=== PATIENT | male | born 1980 | race Asian ===

== ENCOUNTER 2020-08-25 16:53 | Inpatient (IN) | payer SELFPAY ==
[~2020-08-25] VITALS: Ht 165.1 cm; Wt 77.0 kg
[2020-08-25 19:08] LABS: Hematocrit 33.8 % (41.0-53.0); Hemoglobin 10.6 g/dL (13.5-17.5); Mean Corpuscular Hemoglobin 20.7 pg (28.0-32.0); Mean Corpuscular Hgb Conc. 31.3 g/dL (32.0-36.0); Platelet Count (auto) 249 10^3/uL (140-450); Red Blood Cells 5.12 10^6/uL (4.5-5.90); Red Cell Distribution Width 18.1 % (11.8-14.3); White Blood Cell 11.8 10^3/uL (4.4-10.8)
[2020-08-25 19:12] LABS: Band Neutrophils % (manual) 0; Basophils % (manual) 0 (0.0-2.0); Blast Cells 0; Metamyelocytes % 0; Myelocytes % 0; Promyelocytes % 0; Reactive Lymphocytes 0
[2020-08-25 19:34] LABS: Magnesium 2.1 mg/dL (1.6-2.6); Potassium 3.4 mmol/L (3.5-5.1)
[2020-08-25 19:52] LABS: Albumin 3.2 g/dL (3.4-5.0); BUN/Creatinine Ratio 15.9; Bilirubin, Total 2.5 mg/dL (0.2-1.0); Calcium 8.6 mg/dL (8.5-10.1); Total Protein 8.2 g/dL (6.4-8.2)
[2020-08-25 21:30] LABS: Eosinophils % (manual) 2 (0-7); Lymphocytes % (manual) 9 (10.0-50.0); Monocytes % (manual) 12 (0-12)
[2020-08-25] MEDS ORDERED: MORPHINE SULFATE 4 MG/ML SYR/VIAL IV ONE (22:15)
[2020-08-25] MEDS ORDERED: ONDANSETRON HCL 4 MG/2 ML VIAL IV ONE (22:30)
[2020-08-25 22:59] LABS: Urine Bacteria NONE SEEN /hpf (None Seen); Urine Blood Negative /uL (Negative); Urine Hyaline Cast FEW /lpf (0 - 2); Urine Mucus FEW (None Seen); Urine Specific Gravity 1.019 (1.001-1.035); Urine WBC 5 /hpf (0 - 3)
[2020-08-25] MEDS ORDERED: cefTRIAXone 1GM/50ML D5W 50 ML IV ONE (23:15)
[2020-08-25] MEDS ORDERED: metroNIDAZOLE 500MG/100ML 100 ML IV ONE (23:15)
[2020-08-26 01:23] LABS: INR 1.03 (0.9-1.15); Partial Thromboplastin Time 20.5 sec (23.0-31.2)
[2020-08-26] MEDS ORDERED: NITROGLYCERIN 0.4 MG SL TAB SL PRN (04:00)
[2020-08-26] MEDS ORDERED: ACETAMINOPHEN 325 MG TAB PO PRN (04:00)
[2020-08-26] MEDS ORDERED: POTASSIUM CHL 20MEQ/100ML 100 ML IV ONE (04:00)
[2020-08-26] MEDS ORDERED: ONDANSETRON HCL 4 MG/2 ML VIAL IV PRN (04:00)
[2020-08-26] MEDS ORDERED: MORPHINE SULF INJ 2 MG/ML SYRINGE 1ML IV PRN (04:00)
[2020-08-26] MEDS ORDERED: MORPHINE SULFATE 4 MG/ML SYR/VIAL IV PRN (04:00)
[2020-08-26 08:40] VITALS: BP 162/112
[2020-08-26 10:24] LABS: Potassium 3.6 mmol/L (3.5-5.1)
[2020-08-26] MEDS: SODIUM CHLORIDE 0.9% 1,000 ML IV SCH ×2 (10:32→22:42)
[2020-08-26] MEDS: cefTRIAXone 1GM/50ML D5W 50 ML IV SCH (10:32)
[2020-08-26] MEDS: PANTOPRAZOLE 40 MG/10 ML VIAL INJ IV SCH (10:32)
[2020-08-26] MEDS: ENOXAPARIN SOD 30 MG/0.3 ML SYRINGE SC SCH (10:33)
[2020-08-26 10:49] LABS: Hematocrit 34.2 % (41.0-53.0); Mean Corpuscular Hemoglobin 21.1 pg (28.0-32.0); Mean Corpuscular Hgb Conc. 32.3 g/dL (32.0-36.0); Mean Corpuscular Volume 65.6 fL (80.0-100.0); Platelet Count (auto) 251 10^3/uL (140-450); Red Blood Cells 5.22 10^6/uL (4.5-5.90); White Blood Cell 10.5 10^3/uL (4.4-10.8)
[2020-08-26 10:53] LABS: Albumin 3.3 g/dL (3.4-5.0); BUN/Creatinine Ratio 20.9; Basophils % (manual) 0 (0.0-2.0); Bilirubin, Total 4.2 mg/dL (0.2-1.0); Blast Cells 0; Calcium 9.1 mg/dL (8.5-10.1); Eosinophils % (manual) 0 (0-7); Metamyelocytes % 0; Myelocytes % 0; Promyelocytes % 0; Reactive Lymphocytes 0; Total Protein 8.4 g/dL (6.4-8.2)
[2020-08-26] MEDS ORDERED: cloNIDine HCL 0.1 MG TAB PO PRN (11:15)
[2020-08-26] MEDS ORDERED: IOHEXOL 300 MG/ML 100ML BOTTLE IJ ONE (11:59)
[2020-08-26 12:00] VITALS: BP 166/94
[2020-08-26] MEDS: metroNIDAZOLE 500MG/100ML 100 ML IV SCH ×2 (14:00→22:43)
[2020-08-26 14:43] LABS: Band Neutrophils % (manual) 2; Lymphocytes % (manual) 10 (10.0-50.0); Monocytes % (manual) 8 (0-12)
[2020-08-26 16:00] VITALS: BP 151/90
[2020-08-27] MEDS: metroNIDAZOLE 500MG/100ML 100 ML IV SCH ×3 (06:19→21:47)
[2020-08-27 07:46] LABS: Hemoglobin 10.3 g/dL (13.5-17.5)
[2020-08-27 07:48] LABS: Hematocrit 31.9 % (41.0-53.0); Mean Corpuscular Hemoglobin 21.1 pg (28.0-32.0); Mean Corpuscular Hgb Conc. 32.4 g/dL (32.0-36.0); Mean Corpuscular Volume 65.2 fL (80.0-100.0); Platelet Count (auto) 200 10^3/uL (140-450); Red Blood Cells 4.88 10^6/uL (4.5-5.90); Red Cell Distribution Width 18.1 % (11.8-14.3); White Blood Cell 9.5 10^3/uL (4.4-10.8)
[2020-08-27 07:54] LABS: Albumin 2.7 g/dL (3.4-5.0); Calcium 8.6 mg/dL (8.5-10.1); Potassium 3.6 mmol/L (3.5-5.1)
[2020-08-27 07:56] LABS: Band Neutrophils % (manual) 0; Basophils % (manual) 0 (0.0-2.0); Metamyelocytes % 0
[2020-08-27 07:57] LABS: Blast Cells 0; Myelocytes % 0; Promyelocytes % 0; Reactive Lymphocytes 0
[2020-08-27 08:07] LABS: BUN/Creatinine Ratio 15.9; Bilirubin, Total 2.7 mg/dL (0.2-1.0); Total Protein 7.6 g/dL (6.4-8.2)
[2020-08-27] MEDS: cefTRIAXone 1GM/50ML D5W 50 ML IV SCH (09:07)
[2020-08-27] MEDS: ENOXAPARIN SOD 30 MG/0.3 ML SYRINGE SC SCH (09:07)
[2020-08-27] MEDS: PANTOPRAZOLE 40 MG/10 ML VIAL INJ IV SCH (09:07)
[2020-08-27] MEDS: SODIUM CHLORIDE 0.9% 1,000 ML IV SCH (13:22)
[2020-08-27 14:19] LABS: Eosinophils % (manual) 1 (0-7)
[2020-08-27 14:20] LABS: Lymphocytes % (manual) 15 (10.0-50.0); Monocytes % (manual) 8 (0-12)
[2020-08-27] MEDS: HYDROcodone-ACET 5/325MG TAB PO PRN (14:39)
[2020-08-27 17:00] VITALS: BP 141/99
[2020-08-27 21:21] VITALS: BP 147/101
[2020-08-28] MEDS: HYDROcodone-ACET 5/325MG TAB PO PRN ×2 (02:15→09:18)
[2020-08-28 05:57] VITALS: BP 139/96
[2020-08-28] MEDS: SODIUM CHLORIDE 0.9% 1,000 ML IV SCH (06:15)
[2020-08-28] MEDS: metroNIDAZOLE 500MG/100ML 100 ML IV SCH (06:16)
[2020-08-28 09:00] VITALS: BP 148/106
[2020-08-28] MEDS: cefTRIAXone 1GM/50ML D5W 50 ML IV SCH (09:19)
[2020-08-28] MEDS: PANTOPRAZOLE 40 MG/10 ML VIAL INJ IV SCH (09:20)
[2020-08-28] MEDS: ENOXAPARIN SOD 30 MG/0.3 ML SYRINGE SC SCH (09:20)
[2020-08-28 13:00] VITALS: BP 150/106
[2020-08-28 14:58] VITALS: BP 150/111
== END 2020-08-28 16:11 | disposition hospice, home (50) | DRG 435 ==
LOC: ER 16:53 → OVERFLOW 16:54 → TELE-CENTR 08-27 16:29
PROVIDERS: ADMIT Nurse Practitioner Family; ATTEND Family Medicine
DX: C22.0 Liver cell carcinoma (principal); E43 Unspecified severe protein-calorie malnutrition; K80.00 Calculus of gallbladder with acute cholecystitis without obstruction; Z20.828 Contact with and (suspected) exposure to other viral communicable diseases; B19.20 Unspecified viral hepatitis C without hepatic coma; K59.00 Constipation, unspecified; K74.60 Unspecified cirrhosis of liver; Z51.5 Encounter for palliative care; R73.9 Hyperglycemia, unspecified; E87.8 Other disorders of electrolyte and fluid balance, not elsewhere classified; Z85.05 Personal history of malignant neoplasm of liver; Z68.28 Body mass index [BMI] 28.0-28.9, adult
CPT/HCPCS: 36415; 74176; 74177; 80053; 81001; 82105; 82150; 83036; 83605; 83690; 83735; 85007; 85027; 85610; 85730; 87040; 87426; C9113; G0378; J0696; J3480; J3490